=== PATIENT | female | born 1950 | race Caucasian/White ===

== ENCOUNTER → 2019-04-16 | Outpatient (CLI) | payer MEDICARE ==
--- NOTE | 2019-04-17 08:52 | MM ---
Reason for exam: clinical finding. History: Patient is postmenopausal and history of breast cancer. Family history of breast cancer in maternal cousin at age 40. Lumpectomy of the right breast, 2004. Lumpectomy of the right breast, 1992. Lumpectomy of the right breast, 1989. Took hormonal contraceptives beginning at age 20. Physical Findings: Nurse Summary: 1cm nodule in the left breast at 11 o'clock and 11:30 (nurse arturo). [facility] Diagnostic Mammo w CAD MORIS Bilateral CC and MLO view(s) were taken. There are scattered fibroglandular densities. Benign appearing bilateral calcifications. No suspicious abnormality in the right breast. These results were verbally communicated with the patient and result sheet given to the patient on 04/16/19. ASSESSMENT: Incomplete: need additional imaging evaluation, BI-RAD 0 RECOMMENDATION: Ultrasound of the left breast.
--- NOTE | 2019-04-17 08:54 | USB ---
Reason for exam: additional evaluation requested from abnormal screening. History: Patient is postmenopausal and history of breast cancer. Family history of breast cancer in maternal cousin at age 40. Lumpectomy of the right breast, 2004. Lumpectomy of the right breast, 1992. Lumpectomy of the right breast, 1989. Took hormonal contraceptives beginning at age 20. US Breast LT Left complete breast ultrasound includes all four quadrants, the retroareolar region and axilla. Finding demonstrates a 1.7 x 1.6 x 0.9cm mixed lesion at 10 o'clock, increased through transmission and skin tract leading to skin surface. In the setting of recent trauma and rib fractures with chest bruising over this site and smaller size clinically of this mass it most likely is a hematoma. These results were verbally communicated with the patient and result sheet given to the patient on 04/16/19. ASSESSMENT: Probably benign, BI-RAD 3 RECOMMENDATION: Ultrasound of the left breast in 3 months. (If increase in size, return sooner, if growth on follow up exam, biopsy would be recommended).
== END | disposition home or self-care (01) ==
LOC: RADMAMWWP 14:59
PROVIDERS: ATTEND Family Medicine
DX: R92.8 Other abnormal and inconclusive findings on diagnostic imaging of breast (principal); N63.22 Unspecified lump in the left breast, upper inner quadrant; Z85.3 Personal history of malignant neoplasm of breast
CPT/HCPCS: 77066